=== PATIENT | male | born 1960 | race Caucasian/White ===

== ENCOUNTER 2020-11-22 09:55 | Inpatient (IN) | payer OTHER ==
[~2020-11-22] VITALS: Ht 182.9 cm; Wt 88.5 kg
--- NOTE | ~2020-11-22 | EMS ---
[place] [address] EMS Patient Care Report Name: PAIGE GELLER Room: [facility]#: [id number] Admission: 11/22/20 Attend Phys: Discharge: Date of : 64 Report #: [id number] THIS REPORT FOR: //name// Report Transmitted: 11/22/2020 12:14 EMS Care Summary [facility] Incident [phone] @ 11/22/2020 09:10 Incident Location [address] [address] Patient PAIGE GELLER Male, 60 Years 1960 Patient Address [address] [place] [address] Patient History None Reported, Patient Allergies No known allergies, Patient Medications Aspirin, Chief Complaint Chest Pain Disposition Transported No Lights/Clements Dispatch Reason Chest Pain (Non-Traumatic) Transported To [facility] Narrative Med 1 and Utility 1 were dispatched for a [age] year-old male c/o chest pain that radiated down his right arm and rated a 10/10 sharp pain. Patient's vitals were obtained and patient was placed on the equipment monitor phototypesetting and 12 lead was obtained. Patient was given 324 mg of Baby ASA. [place] [address] EMS Patient Care Report Name: PAIGE GELLER Room: [facility]#: [id number] Admission: 11/22/20 Attend Phys: Discharge: Date of : 64 Report #: [id number] the stretcher and secured via the seatbelts and moved to the ambulance without incident. In the ambulance, IV access was obtained and Normal Saline drip was started at a TKO rate. Patient was given one dose of Nitroglycerin and Med 1 went en route to [facility]. Patient reported that he has had chest pain on and off for the last week and had not told his . Patient was given Nitroglycerin Paste placed on the back of his back at .5 inches. Hospital report was given to [facility] via radio with no questions or orders received or requested. Patient's pain began to increase again and he was given Fentanyl. Med 1 arrived at the hospital. Patient was moved into the ER via stretcher without incident to room 16. Patient care was transferred to the ER staff in room 16. Med 1 returned back into service. Edilbertomauriliogriselda [id number] Initial Vitals @09:43 @09:50 @09:33 @09:16 @09:16P: 75,SpO2: 100, @09:23P: 63,SpO2: 100, @09:22P: 64,BP: 139/103,SpO2: 100, @09:45 @09:32P: 65,BP: 138/107,SpO2: 99, @09:49P: 62,BP: 152/108,SpO2: 100, @09:43P: 63,R: 18,BP: 156/110,Pain: 4/10,GCS: 15,SpO2: 100,Revised Trauma: 12, @09:18P: 69,R: 18,BP: 135/100,Pain: 8/10,GCS: 15,Revised Trauma: 12, Impression Chest Pain / Discomfort Procedures @09:3712-Lead ECGResponse: UnchangedSucceeded@09:14Aspirin - 324 Milligrams (mg) - OralResponse: Improved@09:16Nitroglycerin - 0.4 Milligrams (mg) - BuccalResponse: Improved@09:17Nitro Paste - 0.5 Inches (in) - TransdermalResponse: Improved@09:20Fentanyl - 100 Micrograms (mcg) - Intravenous (IV)Response: Improved@09:26Fentanyl - 100 Micrograms (mcg) - Intravenous (IV)Response: Unchanged@09:3312-Lead ECG@09:1612-Lead ECGResponse: UnchangedSucceeded@09:5012-Lead ECGResponse: [place] [address] EMS Patient Care Report Name: PAIGE GELLER Room: [facility]#: [id number] Admission: 11/22/20 Attend Phys: Discharge: Date of : 64 Report #: [id number] 09:10,Call Received 09:10,Dispatched 09:10,En Route 09:12,On Scene 09:13,At Patient 09:14,Aspirin - 324 Milligrams (mg) - Oral,Response: Improved 09:16,Nitroglycerin - 0.4 Milligrams (mg) - Buccal,Response: Improved 09:16,BP: / M,PULSE: 75,RR: R,SPO2: 100 Ox,ETCO2: ,BG: ,PAIN: ,GCS: , 09:16,12-Lead ECG,Response: UnchangedSucceeded, 09:16,BP: / M,PULSE: ,RR: R,SPO2: Ox,ETCO2: ,BG: ,PAIN: ,GCS: , 09:17,Nitro Paste - 0.5 Inches (in) - Transdermal,Response: Improved 09:18,BP: 135/100 M,PULSE: 69,RR: 18 R,SPO2: Ox,ETCO2: ,BG: ,PAIN: 8,GCS: 15, 09:20,Fentanyl - 100 Micrograms (mcg) - Intravenous (IV),Response: Improved 09:22,BP: 139/103 M,PULSE: 64,RR: R,SPO2: 100 Ox,ETCO2: ,BG: ,PAIN: ,GCS: , 09:23,BP: / M,PULSE: 63,RR: R,SPO2: 100 Ox,ETCO2: ,BG: ,PAIN: ,GCS: , 09:26,Fentanyl - 100 Micrograms (mcg) - Intravenous (IV),Response: Unchanged 09:32,Depart Scene 09:32,BP: 138/107 M,PULSE: 65,RR: R,SPO2: 99 Ox,ETCO2: ,BG: ,PAIN: ,GCS: , 09:33,12-Lead ECG, 09:33,BP: / M,PULSE: ,RR: R,SPO2: Ox,ETCO2: ,BG: ,PAIN: ,GCS: , 09:37,12-Lead ECG,Response: UnchangedSucceeded, 09:43,BP: / M,PULSE: ,RR: R,SPO2: Ox,ETCO2: ,BG: ,PAIN: ,GCS: , 09:43,BP: 156/110 M,PULSE: 63,RR: 18 R,SPO2: 100 Ox,ETCO2: ,BG: ,PAIN: 4,GCS: 15, 09:45,BP: / M,PULSE: ,RR: R,SPO2: Ox,ETCO2: ,BG: ,PAIN: ,GCS: , 09:49,BP: 152/108 M,PULSE: 62,RR: R,SPO2: 100 Ox,ETCO2: ,BG: ,PAIN: ,GCS: , 09:50,12-Lead ECG,Response: UnchangedSucceeded, 09:50,BP: / M,PULSE: ,RR: R,SPO2: Ox,ETCO2: ,BG: ,PAIN: ,GCS: , 09:51,At Destination 10:26,Call Closed 10:26,In District Disclaimer v1.1 Copyright 2020 [employer] This EMS Care Summary contains data elements from the applicable legal record (which may be displayed differently). It is designed to provide pertinent information for the following purposes: continuity of care, clinical quality, and state data reporting. The complete legal record is available to ED staff and administrators of the receiving hospital in [employer] Patient Tracker. All data is provided "as is."
[2020-11-22 10:00] VITALS: BP 153/104
[2020-11-22 10:16] LABS: ABSOLUTE EOSINOPHILS 0.1 thou/uL (0.0-0.7); ABSOLUTE LYMPHOCYTES 1.6 thou/uL (0.8-5.3); ABSOLUTE MONOCYTES 0.4 thou/uL (0.0-1.2); ABSOLUTE NEUTROPHILS 3.2 thou/uL (1.6-8.1); BASOPHILS 0.8 %; EOSINOPHILS 1.2 %; HEMOGLOBIN 14.8 gm/dL (14.0-18.0); LYMPHOCYTES 30.1 %; MCH 32.8 pg (26.0-34.0); MCHC 34.4 g/dL (28.0-37.0); MCV 95.3 fL (80.0-100.0); MONOCYTES 7.3 %; MPV 7.4 fl. (7.2-11.1); NUCLEATED RBCS 0 /100WBC; PLATELET COUNT* 214 thou/uL (150-400); POLYS 60.6 %; RBC 4.51 mil/uL (4.50-6.00); RDW-CV 13.2 % (10.5-14.5); WBC 5.2 thou/uL (4.0-11.0)
[2020-11-22 11:28] LABS: CALCIUM 8.4 mg/dL (8.5-10.1); CREATININE 1.2 mg/dL (0.6-1.3); POTASSIUM 3.7 mmol/L (3.5-5.1)
[2020-11-22 11:42] LABS: ALBUMIN 3.9 g/dL (3.4-5.0); CK-MB MASS 3.2 ng/mL (<0.5-3.6); MAGNESIUM 1.9 mg/dL (1.8-2.4); TOTAL BILIRUBIN 0.7 mg/dL (<0.1-1.0); TOTAL PROTEIN 6.6 g/dL (6.4-8.2)
[2020-11-22] MEDS ORDERED: FLEXERIL PO (12:50)
[2020-11-22] MEDS ORDERED: PERCOCET PO (12:50)
[2020-11-22 15:35] LABS: APTT 26.5 Seconds (25.0-31.3); PROTIME 10.5 Seconds (9.20-11.50)
[2020-11-22 18:32] VITALS: BP 103/64
[2020-11-22 19:44] LABS: ALBUMIN 3.9 g/dL (3.4-5.0); ALKALINE PHOSPHATASE 66 U/L (46-116); ANION GAP 11 mmol/L (7-16); BUN 19 mg/dL (7-18); CALCIUM 8.4 mg/dL (8.5-10.1); CHLORIDE 107 mmol/L (98-107); CHOLESTEROL 232 mg/dL (<200); CO2 22 mmol/L (21-32); CREATININE 1.2 mg/dL (0.6-1.3); GLUCOSE 118 mg/dL (70-99); HDL CHOLESTEROL 40 mg/dL (>40); LDL CHOLESTEROL 164 mg/dL (<100); POTASSIUM 3.8 mmol/L (3.5-5.1); SERUM ASSESSMENT Clear; SGOT 15 U/L (15-37); SGPT 33 U/L (30-65); SODIUM 140 mmol/L (136-145); TC:HDL 5.8 Ratio (Not establshd); TOTAL BILIRUBIN 0.6 mg/dL (<0.1-1.0); TOTAL PROTEIN 6.4 g/dL (6.4-8.2); TRIGLYCERIDE 144 mg/dL (<150); VLDL 29 mg/dL (<40)
--- NOTE | 2020-11-22 22:25 | NUR ---
PTT IS 40 PATIENT IS ALREADY ON MAX DOES OF 1,000 UNITS/HR
[2020-11-22 22:50] VITALS: BP 114/71
[2020-11-23] VITALS (17 sets, daily range): BP systolic 100–125; BP diastolic 7–87
--- NOTE | 2020-11-23 03:45 | NUR ---
PTT 37.8. PATIENT IS AT MAX DOSE 1000 UNITS/HR.
[2020-11-23] MEDS ORDERED: ASA81BEC PO (08:32)
[2020-11-23] MEDS ORDERED: SUPER THERAVIT1 EACH PO (08:33)
[2020-11-23] MEDS ORDERED: FISH OIL 1,0001 EAC9 PO (08:33)
--- NOTE | 2020-11-23 09:14 | NUR ---
RECIEVED REPORT FROM LIDA CASTILLO IN ER OF EXPECTED ADMISSION AT 0745- DX: NSTEMI- PT ARRIVED TO UNIT ROOM 227 VIA BED AT 0800- INSECTICIDE MIXER PLACED ORDERED, TRACING SR- PT A&O X4- CONT OF B/B- SBA WITH TRANSFERS FOR SAFETY- LCTA/DIMINISHED IN BASES- VSS, O2 SAT 100 % ON 2L PER PROTOCOL- ABD SOFT/ROUND/NON-TENDER, BS X4 QUADS- LAST BM REPORTED 11/22/20- IV NOTED TO LEFT AC INTACT WITH IVF AND HEPARIN DRIP INFUSSING PER ER SETTINGS- PT DENIES ANY PAIN AT TIME OF ADMISSION- DENIES ANY OPEN WOUNDS/SOARS- PT AHS SINCE BEEN EVALUATED PER CARDIOLOGY AND TAKEN TO HOME HEALTH AIDE CAREGIVER AROUND 0845 THIS AM- ALL NEEDS MET AT THIS TIME
--- NOTE | 2020-11-23 10:43 | EKG ---
[place] [address] ELECTROCARDIOGRAM REPORT Name: DUYENPAIGE Miramontes Room: [place] [address] ADM IN [facility].#: [id number] Admission: 11/22/20 Attend Phys: Ryan Davenport Discharge: Date of : 64 Date of Service: 11/22/20 0958 Report #: [id number] THIS REPORT FOR: //name// [facility] ED Test Date: 2020-11-22 Test Time: 09:58:34 Pat Name: PAIGE GELLER Department: Room: [facility] Gender: M Legal Department Manager: GIFTY : 1960 Requested By: Ángel Kang Order Number: [id number] MD: Sukumar Luciano Measurements Intervals [place] Rate: 64 P: 53 ND: 151 QRS: 10 QRSD: 99 T: 66 QT: 439 QTc: 453 Interpretive Statements Sinus rhythm RSR' in V1 or V2, probably normal variant Baseline wander in lead(s) I,III,aVR,aVL,aVF No previous ECG available for comparison Electronically Signed On 11-23-2020 10:43:13 CDT by Sukumar Luciano [email or web address] <ELECTRONICALLY SIGNED> By: Sukumar Luciano MD, [facility] 11/23/20 1043 0958 0958 Sukumar Luciano MD, [facility] /EPI
--- NOTE | 2020-11-23 12:53 | EKG ---
[place] [address] ELECTROCARDIOGRAM REPORT Name: PAIGE GELLER Room: [place] [address] ADM IN .R.#: [id number] Admission: 11/22/20 Attend Phys: Ryan Davenport Discharge: Date of : 64 Date of Service: 11/23/20 1057 Report #: [id number] THIS REPORT FOR: //name// [facility] Test Date: 2020-11-23 Test Time: 10:57:57 Pat Name: PAIGE GELLER Department: Room: [place] [address] Gender: M Junior Network Engineer: KF : 1960 Requested By: Sukumar Luciano Order Number: [id number] Jaelyn MD: Sukumar Luciano Measurements Intervals [place] Rate: 51 P: 30 TX: 144 QRS: -24 QRSD: 98 T: 19 QT: 436 QTc: 402 Interpretive Statements Sinus bradycardia Borderline left axis deviation Low voltage, precordial leads Compared to ECG 11/22/2020 09:58:34 Low QRS voltage now present Electronically Signed On 11-23-2020 12:53:25 CDT by Sukumar Luciano [email or web address] <ELECTRONICALLY SIGNED> By: Sukumar Luciano MD, [facility] 11/23/20 1253 1057 1057 Sukumar Luciano MD, [facility] /EPI
--- NOTE | 2020-11-23 13:50 | CARD ---
[address] [address] CARDIAC CATH REPORT Name: PAIGE GELLER Room: [place] [address] ADM IN R.#: [id number] Admission: 11/22/20 Attend Phys: Charli Fay Discharge: Date of : 64 Report #: [id number] THIS REPORT FOR: cc: Ti Romero MD, Jason C. MD Blick, David R. MD [facility] ~ APPROVED REPORT Study performed: 11/23/2020 08:33:54 Patient Details Patient Status: In-Patient Room #: The patient is a 60 year-old male Event Personnel Sukumar Luciano Children'S Program Coordinator, Myranda Steen RN RN, Rasheed Bedoya STREET LIGHT REPAIRER Scrub, Namita Lucero RTR Monitor Procedures Performed Art Access - R radial artery Left Heart Cath w/or w/o Coronaries HIPOLITO Place w/wo Plasty Single CIRC [place]IPOLIT[place] Place w/wo Plasty Single LAD [place]IPOLITO Place w/wo Plasty Single RCA Hemostasis with Hemoband Indication Non-STEMI (>6 hrs to = 12 hrs), Chest pain Risk Factors Hypercholesterolemia Admission/Lab Medications/Medications given during procedure Glycoprotein IllbIlla Inhibitors, Heparin Unfract., Oxygen Nasal cannula 2 l per min, 0.9% Sodium Chloride IV 75 ml per hr, Lidocaine Subcut 8 ml, Nitroglycerin IA 400 mcg, Verapamil IA 5 mg, Heparin IV 7000 units, Aggrastat IV 8.4 ml, Aspirin PO 81 mg, Effient PO 60 mg Procedure Narrative The patient was brought urgently to the Cardiac Catheterization Laboratory and was prepped and draped in a sterile manner. The right wrist was infiltrated with 2% Lidocaine subcutaneous anesthesia. IV conscious sedation was used throughout procedure with appropriate monitoring and was performed in the presence [place] [address] CARDIAC CATH REPORT Name: PAIGE GELLER Room: [address] IN [facility]#: [id number] Admission: 11/22/20 Attend Phys: Charli Fay Discharge: Date of : 64 Report #: [id number] who was an independent trained observer other than the physician performing the procedure. A Slender Glidesheath sheath was inserted into the right radial artery. Coronary angiography was performed using coronary diagnostic catheters. The right coronary system was accessed and visualized with a Diagnostic 6 Fr JR 4 catheter. The left coronary system was accessed and visualized with a Diagnostic 6 Fr JL 4 catheter. The left ventricle was accessed and visualized with a Diagnostic 6 Fr Pigtail catheter. Left ventricular/Aortic Valve gradient assessed via catheter pullback. Left ventriculogram was performed in VELASCO projection. Closure device was deployed with a 6 Fr Vasc-Band Lng 27cm. The patient tolerated the procedure well and there were no complications associated with the procedure. There was no hematoma. Intraoperative Conscious Sedation Sedation start time: 09:09 Case end Time: 10:15 Fentanyl 25 mcg Versed 3 mg Fluoro Time: 12.8 minutes Dose: DAP 036619 cGycm2 1850 mGy Contrast Type and Amount: Omnipaque 215 ml Coronary Angiography The patient's coronary anatomy is right dominant. Diagnostic Cath Left Main 0% stenosis LAD 90% proximal stenosis, and 80% stenosis after the 3rd diagonal artery in the mid LAD Circumflex 99% stenosis after the 3rd marginal branch of the circumflex Right Coronary 60% proximal stenosis and 90% stenosis in the mid RCA after the acute marginal branch Left Ventriculography The left ventricle is mildly dilated in size with abnormal contractility. The left ventricular ejection fraction is estimated to be 35-40%. Left ventricular wall motion abnormalities are present. There is no mitral insufficiency. moderate hypokinesis noted of the inferior wall Hemodynamics The aortic pressure is 111/74 mmHg with a mean of 91 mmHg. The left ventricular pressure is 124/10 mmHg [place] [address] CARDIAC CATH REPORT Name: PAIGE GELLER Room: [address] IN [facility]#: [id number] Admission: 11/22/20 Attend Phys: Charli Fay Discharge: Date of : 64 Report #: [id number] ventricular end diastolic pressure is 20 mmHg. There was no gradient across the aortic valve upon pullback. Pullback from the left ventricle to the aorta revealed no gradient across the aortic valve. PCI Technique Lesion Anticoagulation was achieved with Heparin. bolus of IV aggrastat given Percutaneous coronary intervention was performed on the mid circumflex artery segment. The lesion stenosis prior to intervention was 99% with ASIA 3 flow. A 6FR XB 3.5 100CM Guide Catheter was used to engage the left ostium. A IG: BMW 190cm Interventional Guidewire was used to cross the lesion. BALLOON DILATION A Balloon catheter Euphora SC 2.5x10 was inserted and inflated up to 16.00atm for 11seconds. Repeat angiography revealed the following post-dilatation results: 40% stenosis. STENT DEPLOYMENT A drug-eluting stent Thornton RX Stent 3.5X18mm was inserted and inflated up to 12.00atm for 10seconds. Repeat angiography revealed the following post-stent deployment results: 0% stenosis. Additional Inflation: 13.00atm for 12seconds. Final angiography reveals 0 % stenosis with ASIA 3 flow. PCI Technique Lesion 2 Percutaneous Coronary Intervention was performed on the proximal left anterior descending artery segment. Percutaneous coronary intervention was performed on the proximal left anterior descending artery segment. The lesion stenosis prior to intervention was 90% with ASIA 3 flow. A 6FR XB 3.5 100CM Guide Catheter was used to engage the left ostium. A IG: BMW 190cm Interventional Guidewire was used to cross the lesion. Balloon Dilation A Balloon catheter Euphora SC 2.5x10 was inserted and inflated up to 16.00atm for 12seconds. Repeat angiography revealed the following post-dilatation results: 30% stenosis. Stent Deployment A drug-eluting stent Heath RX Stent 3.0X22mm was inserted and inflated up to 10.00atm for 11seconds. Repeat angiography revealed the following post-stent deployment results: 0% stenosis. Additional Inflation: 15.00atm for 8seconds. Additional Inflation: 16.00[place] [address] CARDIAC CATH REPORT Name: PAIGE GELLER Room: [address] IN M.R.#: [id number] Admission: 11/22/20 Attend Phys: Charli Fay Discharge: Date of : 64 Report #: [id number] 10seconds. Final angiography reveals 0 % stenosis with ASIA 3 flow. PCI Technique Lesion 3 Percutaneous Coronary Intervention was performed on the mid right coronary artery. Percutaneous coronary intervention was performed on the mid right coronary artery. The lesion stenosis prior to intervention was 90% with ASIA 3 flow. A 6F JR 4.0 Guide Catheter was used to engage the right ostium. A IG: BMW 190cm Interventional Guidewire was used to cross the lesion. Balloon Dilation A Balloon catheter Euphora SC 2.5x10 was inserted and inflated up to 16.00atm for 5seconds. Repeat angiography revealed the following post-dilatation results: 30% stenosis. Stent Deployment A drug-eluting stent Heath RX Stent 3.0X34mm was inserted and inflated up to 14.00atm for 13seconds. Repeat angiography revealed the following post-stent deployment results: 0% stenosis. Additional Inflation: 17.00atm for 11seconds. Additional Inflation: 21.00atm for 13seconds. Final angiography reveals 0 % stenosis with ASIA 3 flow. Conclusion 1. 90% stenosis of the proximal LAD, 99% stenosis of the mid circumflex artery, and 90% stenosis of the mid RCA 2. LVEF 35-40% 3. successful placement of drug eluting stents in the LAD, circumflex, and RCA Recommendations Cardiac Rehabilitation Referral Aggressive Medical Therapy Medications Administered Prasugrel <ELECTRONICALLY SIGNED> By: Sukumar Luciano MD, [facility] 11/23/20 1349 1349 1349Daparis Luciano MD, FACC /INF
--- NOTE | 2020-11-23 16:18 | NUR ---
CM COMPLETED ASSESSMENT WITH PT AND WIF, WHO WAS AT BESIDE. PT HAD HEART ATTACK WHILE IN LATTER-DAY. PT WENT TO [facility] TO HAVE 3 STENTS PLACED TODAY, PT INDICATED HE "FELT GOOD." PT LIVES AT HOME WITH . PT IS EMPLOYEED, DRIVES A VEHICLE, ACTIVE AND IDNEPENDENT WITH ADLS. PT HAS NO DMES. PT DENIES HX WITH HH OR SNF. THERE ARE NO ANTICIPATED D/C NEEDS.
[2020-11-24 00:02] VITALS: BP 105/66
[2020-11-24 04:20] VITALS: BP 100/53
[2020-11-24 04:48] LABS: HEMATOCRIT 40.3 % (42.0-52.0); HEMOGLOBIN 13.9 gm/dL (14.0-18.0); MCH 32.9 pg (26.0-34.0); MCHC 34.5 g/dL (28.0-37.0); MCV 95.3 fL (80.0-100.0); MPV 7.8 fl. (7.2-11.1); RBC 4.23 mil/uL (4.50-6.00); RDW-CV 13.1 % (10.5-14.5); WBC 6.7 thou/uL (4.0-11.0)
[2020-11-24 04:58] LABS: CALCIUM 8.7 mg/dL (8.5-10.1); CREATININE 1.1 mg/dL (0.6-1.3); POTASSIUM 3.7 mmol/L (3.5-5.1)
[2020-11-24 07:08] LABS: GLYCOHEMOGLOBIN (HGB A1C) 5.7 % (4.8-5.6)
[2020-11-24 08:17] VITALS: BP 100/67
[2020-11-24] MEDS ORDERED: NITROGLYCERIN0.4 MG SUBLING (09:06)
[2020-11-24] MEDS ORDERED: CARVEDILOL3.125 MG PO (09:06)
[2020-11-24] MEDS ORDERED: LIPITOR40 MG PO (09:06)
[2020-11-24] MEDS ORDERED: EFFIENT10 MG PO (09:06)
[2020-11-24 09:58] VITALS: BP 100/67
--- NOTE | 2020-11-24 10:46 | EKG ---
[place] [address] ELECTROCARDIOGRAM REPORT Name: JT GELLER Room: [place] [address] ADM IN .R.#: [id number] Admission: 11/22/20 Attend Phys: Ryan Davenport Discharge: Date of : 64 Date of Service: 11/24/20 0751 Report #: [id number] THIS REPORT FOR: //name// [facility] Test Date: 2020-11-24 Test Time: 07:51:46 Pat Name: JT GELLER Department: Room: [place] [address] Gender: M Consulting Networking Engineer: INES : 1960 Requested By: Sukumar Luciano Order Number: [id number] Reading MD: Jt Pritchett Measurements Intervals [place] Rate: 57 P: 16 MS: 143 QRS: 101 QRSD: 99 T: 96 QT: 429 QTc: 418 Interpretive Statements Sinus rhythm Low voltage, precordial leads Nonspecific T abnormalities, lateral leads Baseline wander in lead(s) V1,V2,V3 Compared to ECG 11/23/2020 10:57:57 T-wave abnormality now present Sinus bradycardia no longer present Electronically Signed On 11-24-2020 10:46:44 CDT by Jt Pritchett [email or web address] <ELECTRONICALLY SIGNED> By: Jt Pritchett MD, FACC 11/24/20 1046 075 075 Jt Pritchett MD, FAC /EPI
[2020-11-24 11:25] VITALS: BP 100/67
[2020-11-24 11:51] VITALS: BP 106/64
--- NOTE | 2020-11-25 15:03 | CON ---
[facility] [address] [place] [address] CONSULTATION Name: PAIGE GELLER Room: [address] IN M.R.#: [id number] Admission: 11/22/20 Attend Phys: Charli Fay Discharge: 11/24/20 Date of : 64 Report #: [id number] THIS REPORT FOR: cc: Ti Romero MD, Jason C. MD Blick, David R. MD [facility] ~ cc: Ti Romero MD DATE OF CONSULTATION: 11/23/2020 CARDIOLOGY CONSULTATION HISTORY OF PRESENT ILLNESS: The patient is a 60-year-old white male who I was asked to see in the hospital today after he complained of chest pain. The patient has no previous history of heart disease. He stays very active at work. He was doing well until past week. He began to complain of intermittent ache in his chest. It usually occurred when he exerted himself. It lasted several minutes and resolved. However, yesterday he was at work when he had ache in his chest, went into his neck. He became short of breath, diaphoretic, nauseated. He was at [employer] at that time. His called the ambulance. He was brought here to [place]. Troponin is elevated. He was felt to have a non-STEMI. He was started on intravenous heparin and nitro paste. He has had no further chest pain although lasted about 6 hours yesterday. He denies any recent bleeding. He has had a cough. The pain was not related to swallowing or cough. He has had no bleeding. He denies exertional dyspnea. He has had no palpitations or syncope. PAST MEDICAL HISTORY: He has had no surgical procedures. He has no history of hypertension, diabetes, or hyperlipidemia. MEDICATIONS: His only medications, he takes aspirin 81 mg a day, fish oil, vitamin. ALLERGIES: He had no known drug allergies. FAMILY HISTORY: His father had bypass surgery. SOCIAL HISTORY: He is . He works for a [employer] company. He stays very active at work. He uses alcohol occasionally. No smoking. REVIEW OF SYSTEMS: No history of stroke. He does have allergies. No history of liver disease, kidney disease, cancer, psychiatric illness, chronic skin condition. PHYSICAL EXAMINATION: [place] [address] CONSULTATION Name: PAIGE GELLER Room: [address]#: [id number] Admission: 11/22/20 Attend Phys: Charli Fay Discharge: 11/24/20 Date of : 64 Report #: [id number] GENERAL: Revealed a middle-aged male, appeared in no acute distress. VITAL SIGNS: He had a blood pressure of 100/60, pulse 70, he is afebrile. HEENT: He was anicteric. Conjunctivae are pink. Mucous membranes are moist. NECK: Veins not distended. No carotid bruits. Neck is supple. CHEST: Clear to auscultation. CARDIAC: Regular rate and rhythm without murmur. ABDOMEN: Soft. EXTREMITIES: Had no edema. Posterior tibial pulse 2+. SKIN: Cool and dry. NEUROLOGIC: Nonfocal. PSYCHIATRIC: Mood is appropriate. DIAGNOSTIC DATA: ECG showed a sinus rhythm with RSR prime in lead V1, but no significant ST or T-wave changes. His workup in the Emergency Room, he had a chest x-ray that showed normal heart size, clear lung gale. Actually, he had a CT scan of the chest using a PE protocol that showed no pulmonary embolus. Otherwise, unremarkable. His lab work, creatinine 1.2. Liver function studies were normal. His troponin on admission was 19, it is currently, greater than ____. BNP 46. Cholesterol 232, triglyceride 144, HDL 40, LDL 164. His white blood cell count 5.2, hemoglobin 14.8. His COVID antigen stat test was negative. IMPRESSION AND RECOMMENDATIONS: 1. Non-ST elevation myocardial infarction. Recommend cardiac catheterization. 2. Hyperlipidemia. Recommend a statin drug. 3. Use of smokeless tobacco. <ELECTRONICALLY SIGNED> By: Sukumar Luciano MD, FACC 11/25/20 1503 0724 0826Sukumar Luciano MD, FACC /nt
== END 2020-11-24 11:39 | disposition home or self-care (01) | DRG 246 ==
LOC: M.ERS 09:55 → M.TBA-ER 13:38 → M.2W 13:38
PROVIDERS: Family Medicine; Internal Medicine Cardiovascular Disease; ADMIT Internal Medicine; ATTEND Internal Medicine
PROC: 027236Z Dilation of Coronary Artery, Three Arteries with Three Drug-eluting Intraluminal Devices, Percutaneous Approach (ICD-10-PCS; principal; 2020-11-23)
PROC: B2111ZZ Fluoroscopy of Multiple Coronary Arteries using Low Osmolar Contrast (ICD-10-PCS; principal; 2020-11-23)
PROC: B2151ZZ Fluoroscopy of Left Heart using Low Osmolar Contrast (ICD-10-PCS; principal; 2020-11-23)
PROC: 4A023N7 Measurement of Cardiac Sampling and Pressure, Left Heart, Percutaneous Approach (ICD-10-PCS; principal; 2020-11-23)
DX: I21.4 Non-ST elevation (NSTEMI) myocardial infarction (principal); I50.41 Acute combined systolic (congestive) and diastolic (congestive) heart failure; E78.5 Hyperlipidemia, unspecified; F17.220 Nicotine dependence, chewing tobacco, uncomplicated; E78.00 Pure hypercholesterolemia, unspecified; I11.0 Hypertensive heart disease with heart failure; Z20.822 Contact with and (suspected) exposure to COVID-19; E11.65 Type 2 diabetes mellitus with hyperglycemia; Z79.899 Other long term (current) drug therapy; Z82.49 Family history of ischemic heart disease and other diseases of the circulatory system

== ENCOUNTER → 2021-01-20 | Outpatient (CLI) | payer OTHER ==
[~2021-01-20] MED LIST: ASA81BEC PO; CARVEDILOL3.125 MG PO; EFFIENT10 MG PO; FISH OIL 1,0001 EAC9 PO; FLEXERIL PO; LIPITOR40 MG PO; NITROGLYCERIN0.4 MG SUBLING; PERCOCET PO; SUPER THERAVIT1 EACH PO
== END ==
LOC: M.LAB 07:25
PROVIDERS: ATTEND Internal Medicine Cardiovascular Disease
DX: E78.5 Hyperlipidemia, unspecified (principal)

== ENCOUNTER → 2021-04-02 | Outpatient (CLI) | payer OTHER ==
[2021-04-02 08:31] LABS: ALBUMIN 3.7 g/dL (3.4-5.0); ALKALINE PHOSPHATASE 72 U/L (46-116); DIRECT BILIRUBIN 0.1 mg/dL (<0.1-0.3); SGOT 22 U/L (15-37); SGPT 62 U/L (30-65); TOTAL BILIRUBIN 0.6 mg/dL (<0.1-1.0); TRIGLYCERIDE 66 mg/dL (<150); VLDL 13 mg/dL (<40)
[2021-04-02 08:44] LABS: CHOLESTEROL 145 mg/dL (<200); HDL CHOLESTEROL 50 mg/dL (>40); TC:HDL 2.9 Ratio (Not establshd)
[2021-04-02 08:47] LABS: LDL CHOLESTEROL 81 mg/dL (<100)
[2021-04-02 08:48] LABS: SERUM ASSESSMENT Clear
== END ==
LOC: M.LAB 07:58
PROVIDERS: ATTEND Nurse Practitioner
DX: E78.5 Hyperlipidemia, unspecified (principal)